=== PATIENT | male | born 2000 | race African-American/Black ===

== ENCOUNTER 2020-01-09 22:26 | Emergency (ER) | payer BC ==
[~2020-01-09] VITALS: Ht 188 cm; Wt 77.3 kg
[2020-01-09 22:31] VITALS: TEMP 98.1
[2020-01-09] MEDS ORDERED: CELEXA 20MG20 MG/TAB PO (22:44)
[2020-01-09 23:04] VITALS: BP 128/82; PULSE 83
== END 2020-01-09 23:07 | disposition home or self-care (01) ==
LOC: COL.ER 22:26
DX: S01.21XA Laceration without foreign body of nose, initial encounter (principal); W22.8XXA Striking against or struck by other objects, initial encounter; Y92.009 Unspecified place in unspecified non-institutional (private) residence as the place of occurrence of the external cause